=== PATIENT | male | born 1945 | race Two or more races ===

== ENCOUNTER → 2021-01-28 08:35 | Outpatient (CLI) | payer OTHER ==
[~2021-01-28 08:35] MED LIST: CARVEDILOL ER40 MG PO; GLIMEPIRIDE1 M1 PO; GLIPIZIDE XL10 MG PO
== END | disposition home or self-care (01) ==
LOC: LAB 08:35
PROVIDERS: ATTEND Orthopaedic Surgery Orthopaedic Surgery of the Spine
DX: Z20.828 Contact with and (suspected) exposure to other viral communicable diseases (principal); D68.8 Other specified coagulation defects; D64.89 Other specified anemias; E03.8 Other specified hypothyroidism; R07.89 Other chest pain

== ENCOUNTER → 2021-04-08 08:00 | Outpatient (CLI) | payer OTHER ==
[~2021-04-08] VITALS: Ht 188 cm; Wt 79.4 kg
[~2021-04-08 08:00] MED LIST changes: +COZAAR100 MG PO
== END | disposition home or self-care (01) ==
LOC: RAD 08:00 → LAB 08:00 → EDSTATUS 04-15 10:00 → SURH 04-15 10:00
PROVIDERS: ATTEND Orthopaedic Surgery Orthopaedic Surgery of the Spine
DX: R94.31 Abnormal electrocardiogram [ECG] [EKG] (principal); M50.01 Cervical disc disorder with myelopathy, high cervical region; Z03.818 Encounter for observation for suspected exposure to other biological agents ruled out; M50.021 Cervical disc disorder at C4-C5 level with myelopathy